=== PATIENT | male | born 1990 | race Caucasian/White ===

== ENCOUNTER 2018-05-14 21:56 | Emergency (ER) | payer BC ==
--- NOTE | 2018-05-14 22:14 | EDM.PDOC ---
ED HPI GENERAL MEDICAL PROBLEM - General Chief Complaint: ENT Problem Stated Complaint: LEFT EAR AND SORE THROAT Time Seen by Provider: 05/14/18 21:58 Source of Information: Reports: Patient History Limitations: Reports: No Limitations - History of Present Illness INITIAL COMMENTS - FREE TEXT/NARRATIVE: HISTORY AND PHYSICAL: History of present illness: 28-year-old male presenting emergency department with 4-5 days of sore throat and left ear pain. Patient states that 4-5 days ago he began a mild sore throat. This has progressed to the point where now his left ear as well as neck hurts. States it feels like sandpaper when he swallows. Initially thought it was possibly due to allergies however things have not improved. Denies any associated fevers, chills , abdominal pain, diarrhea. He has had some mild nausea without vomiting. Denies any medical allergies and takes no normal medications and is generally healthy. On exam bilateral tonsils are erythematous and enlarged with exudate. Patient is tender to palpation of left submandibular wells anterior cervical lymph nodes. Mastoid is nontender to palpation. Review of systems: As per history of present illness and below otherwise all systems reviewed and negative. Past medical history: As per history of present illness and as reviewed below otherwise noncontributory. Surgical history: As per history of present illness and as reviewed below otherwise noncontributory. Social history: No reported history of drug or alcohol abuse. Family history: As per history of present illness and as reviewed below otherwise noncontributory. Physical exam: HEENT: See above Atraumatic, normocephalic, pupils reactive, negative for conjunctival pallor or scleral icterus, mucous membranes moist, neck supple, trachea midline. Lungs: Clear to auscultation, breath sounds equal bilaterally, chest nontender. Heart: S1S2, regular, negative for clicks, rubs, or JVD. Abdomen: Soft, nondistended, nontender. Negative for masses or hepatosplenomegaly. Negative for costovertebral tenderness. Pelvis: Stable nontender. Genitourinary: Deferred. Rectal: Deferred. Extremities: Atraumatic, negative for cords or calf pain. Neurovascular unremarkable. Neuro: Awake, alert, oriented. Cranial nerves II through XII unremarkable. Cerebellum unremarkable. Motor and sensory unremarkable throughout. Exam nonfocal. Diagnostics: Rapid strep Therapeutics: Penicillin V 500 mg by mouth twice a day 10 days Impression: Strep pharyngitis/tonsillitis Plan: On exam patient was tender to palpation of left submandibular as well as anterior cervical lymph nodes. Tonsils were erythematous and enlarged. Patient had symptoms for 4-5 days most suggestive of a strep pharyngitis. He was given a prescription for penicillin V 500 mg by mouth twice a day and told to follow- up with a primary care provider. He should return to the emergency department if he has any new or worsening symptoms. Definitive disposition and diagnosis as appropriate pending reevaluation and review of above. L Ear/Jaw Pain Score (Numeric/FACES): 9 - Related Data Allergies Allergy/AdvReac Type Severity Reaction Status Date / Time No Known Allergies Allergy Verified 05/14/18 22:18 Home Meds: Home Meds . [No Known Home Meds] 05/14/18 [History] ED ROS GENERAL - Review of Systems Review Of Systems: ROS reveals no pertinent complaints other than HPI. ED EXAM, GENERAL - Physical Exam Exam: See Below Course - Vital Signs Last Recorded V/S: Last Vital Signs Temp 97.9 F 05/14/18 22:16 Pulse 93 05/14/18 22:16 Resp 14 05/14/18 22:16 BP 136/85 05/14/18 22:16 Pulse Ox 97 05/14/18 22:16 - Orders/Labs/Meds Orders: Active Orders 24 hr Category Date Time Status STREP SCRN A RAPID W CULT CONF [RM] Stat Lab 05/14/18 22:39 Received Departure - Departure Time of Disposition: 22:54 Disposition: Home, Self-Care 01 Condition: Good Clinical Impression: Strep pharyngitis - Discharge Information Referrals: PCP,None [Primary Care Provider] - Forms: ED Department Discharge Additional Instructions: My general discharge The following information is given to patients seen in the emergency department who are being discharged to home. This information is to outline your options for follow-up care. We provide all patients seen in our emergency department with a follow-up referral. The need for follow-up, as well as the timing and circumstances, are variable depending upon the specifics of your emergency department visit. If you don't have a primary care physician on staff, we will provide you with a referral. We always advise you to contact your personal physician following an emergency department visit to inform them of the circumstance of the visit and for follow-up with them and/or the need for any referrals to a consulting specialist. The emergency department will also refer you to a specialist when appropriate. This referral assures that you have the opportunity for follow-up care with a specialist. All of these measure are taken in an effort to provide you with optimal care, which includes your follow-up. Under all circumstances we always encourage you to contact your private physician who remains a resource for coordinating your care. When calling for follow-up care, please make the office aware that this follow-up is from your recent emergency room visit. If for any reason you are refused follow-up, please contact the [facility] Emergency Department at and asked to speak to the emergency department charge nurse. [facility] [address] [place] [id number] Follow-up with primary care provider. Return to emergency department if any new or worsening symptoms Take medication as prescribed. - My Orders Last 24 Hours: My Active Orders 05/14/18 22:39 STREP SCRN A RAPID W CULT CONF [RM] Stat - Assessment/Plan Last 24 Hours: My Active Orders 05/14/18 22:39 STREP SCRN A RAPID W CULT CONF [RM] Stat
== END 2018-05-14 23:04 | disposition home or self-care (01) ==
LOC: MW.ED 21:56
DX: J02.0 Streptococcal pharyngitis (principal)
CPT/HCPCS: 87880-QW; 99283